=== PATIENT | male | born 1955 | race Caucasian/White ===

== ENCOUNTER 2016-08-01 14:54 | Emergency (ER) | payer MEDICAID, OTHER ==
[2016-08-01 15:10] VITALS: TEMP 98.4; BMI 24.7
[2016-08-01 15:32] LABS: AUTOMATED EOSINOPHIL 0.3 % (0-5); AUTOMATED LYMPH 9.1 % (17-44); AUTOMATED MONOCYTE 4.6 % (3-10)
[2016-08-01 15:49] LABS: BLOOD UREA NITROGEN 18 MG/DL (9-20); CALC CORRECTED 9.6 MG/DL (8.4-10.2); CALCIUM 9.3 MG/DL (8.4-10.2); CALCULATED OSMOLALITY 270 MOs/Kg (270-290); CHLORIDE 104 mEq/L (98-107); GLUCOSE 168 MG/DL (70-99); SODIUM LEVEL 137 mEq/L (137-146); TOTAL PROTEIN 6.8 G/DL (6.3-8.2)
--- NOTE | 2016-08-01 15:55 | DIRPT ---
CLINICAL DATA: Chest pain since 11 a.m. this morning EXAM: CHEST 2 VIEW COMPARISON: None. FINDINGS: Heart size is normal. Overall cardiomediastinal silhouette is normal in size and configuration. Lungs are hyperexpanded indicating underlying COPD. Suspect associated large emphysematous bleb at the right lung base. Also suspect at least mild chronic bronchitic changes centrally. Mild scarring/fibrosis noted at each lung apex. No confluent airspace opacity to suggest a developing pneumonia. No pleural effusions seen. No pneumothorax seen. Osseous structures about the chest are unremarkable. Anterior cervical fusion hardware noted within the lower cervical spine. IMPRESSION: 1. Hyperexpanded lungs consistent with COPD/emphysema. 2. Lungs are clear and there is no evidence of acute cardiopulmonary abnormality. Electronically Signed By: Kenn Renner M.D. On: 08/01/2016 15:52
--- NOTE | 2016-08-01 17:04 | EDPRACDOC ---
- General Information Chief Complaint: Chest Wall Pain Stated Complaint: CP HX SC X 3 Time Seen by Provider: 08/01/16 16:46 Information Source: Patient Home Medications: Home Medications Albuterol Sulfate MDI [Proventil HFA] 2 puff INH Q4 PRN #1 inhaler 08/01/16 Cholecalciferol (Vitamin D3) [Vitamin D3 (cholecalciferol)] 3,000 unit PO DAILY 08/01/16 Esomeprazole Magnesium [Nexium 24Hr] 20 mg PO DAILY 08/01/16 Lisinopril [Zestril] 40 mg PO DAILY 08/01/16 Methotrexate Sodium [Methotrexate] 15 mg PO .WED 08/01/16 Metoprolol Succinate (XL) [Toprol Xl] 25 mg PO DAILY 08/01/16 Prednisone [Deltasone, Orasone] 5 mg PO DAILY 08/01/16 Prednisone [Sterapred DS 10 mg/12 day pack] 48 tab PO DIR #1 pack 08/01/16 Vitamin E 1,000 unit PO DAILY 08/01/16 Allergies/Adverse Reactions: Allergies Allergy/AdvReac Type Severity Reaction Status Date / Time gabapentin Allergy Difficulty Verified 08/01/16 16:13 Breathing - History of Present Illness HPI: PATIENT STATES HE HAS FELT WEAK AND DIZZY FOR 2 DAYS. NO FEVER. NO COUGH. MILD INTERMITTENT CHEST PAIN TODAY. STATES [facility] SUDDEN[facility]. CHEST PAIN WAS SHARP AND ALWAYS ASSOCIATED WITH TRYING TO TAKE A DEEP BREATH Shortness of Breath: Mild Relevant History: Reports: COPD Rhinorrhea: Reports: None Ear Symptoms: Reports: None SOB Worsens with: Reports: Exertion ED Past Medical History - History Reviewed Yes Nurses notes reviewed and agree except as marked Travel Outside of [place] in the Last 3 Months?: No - Patient Medical History Cardiac History: Reports: Hypertension, Heart Attack (x 3), Cardiac Catheterization, Hypercholesterolemia Psychological History: Denies: Depression Systemic History: Denies: Cancer Surgical History: Reports: Cardiac Catheterization - Social Medical History Smoking Status: Heavy tobacco smoker (5 or more cigarettes/day or daily pipe/ cigar) ETOH: None Substance Abuse: None Lives With: Family Lives In: Home EDM Review of Systems - Review of Systems ROS Negative Except as Marked: Yes All systems reviewed and were negative except as marked Constitutional: No Symptoms Reported. negative: Fever, Chills, Weakness, Fatigue, Loss of Appetite Eyes: No Symptoms Reported. negative: Redness, Blurred Vision, Double Vision, Discharge, Pain, Light Sensitive, Photophobia Ears: No Symptoms Reported. negative: Pain, Hearing Loss, Drainage, Ear Pulling Throat: No Symptoms Reported. negative: Pain, Swelling Nose: No Symptoms Reported. negative: Congestion, Bleeding, Discharge, Injection, Swelling, Deformity, Ecchymosis, Tender, Abrasion, Laceration Mouth: No Symptoms Reported. negative: Pain, Drooling Respiratory: Shortness of Breath. negative: Barky Cough, Brassy Cough, Cough, Hemoptysis, Wheezing Cardiovascular: Chest Pain. negative: Cyanosis, Edema, Orthopnea, Palpitations , PND, Syncope, Skin Mottling Gastrointestinal: No Symptoms Reported. negative: Pain, Constipation, Nausea, Vomiting, Diarrhea, Melena, Formula Intolerance Genitourinary: No Symptoms Reported. negative: Dysuria, Hematuria, Frequency, Discharge, Bleeding, Testicular Pain, Neurological: No Symptoms Reported. negative: Headache, Dizziness, Seizure, Numbness, Weakness, Speech Difficulty, Gait Difficulty Musculoskeletal: No Symptoms Reported. negative: Neck, Chestwall, Ribs, Back, Shoulder, Arm, Elbow, Forearm, Wrist, Hand, Pelvis, Hip, Femur, Knee, Leg, Ankle , Foot Integumentary: No Symptoms Reported. negative: Itching, Rash, Bruising, Wound Allergic/Immunologic: No Symptoms Reported. negative: Hives, Itching Hematologic: No Symptoms Reported. negative: Lymphadenopathy, Easy Bruising, Easy Bleeding Endocrine: No Symptoms Reported. negative: Weight Gain, Weight Loss Psychiatric: No Symptoms Reported. negative: Anxiety, Depression, Hallucinations, Insomnia, Suicidal - Physical Exam Constitutional: Alert (Awake) Oriented to: Time, Person, Place Last recorded Vital Signs: Last Vital Signs Temp 98.4 F 08/01/16 15:05 Pulse 59 L 08/01/16 16:45 Resp 18 08/01/16 16:45 BP 175/90 08/01/16 16:45 Pulse Ox 99 08/01/16 16:45 Oxygen Pulse Oxygen Saturation 99 O2 Device Room Air Oxygen Flow Rate Fraction of Inspired Oxygen ( FIO2) - HEENT Head: Normal ( normocephalic) Eye Exam: Normal (PERRL, EOMI, Sclera white) Oropharynx: Normal (Pharynx:Moist without exudate,Gums-no swelling) Tympanic Membrane: Normal ENT EAC: Normal TMJ: Normal Nose: No Symptoms Reported (septum midline) Neck: Normal (FROM, trachea at midline) - Respiratory/Cardiovascular Respiratory: Normal - CTA (BBS clear to auscultation without adventitious sounds ) Cardiovascular: Normal (RRR without murmur, gallop or rub) - GI Auscultation: Normal (NABS) Palpation: Normal (Soft,No rebound or guarding, non distended) Tenderness: Non tender Menjivar's Sign: Negative - Musculoskeletal Back: Normal (Non-Tender) Extremities: Normal (Normal tone, Pulses 2+ No cyanosis or edema, FROM) - Integumentary Skin: Normal, Warm, Dry Lymphatics: Normal (no adenopathy) - Neurologic Memory Impaired: Normal Motor Function: Normal (Normal tone, Pulses 2+ No cyanosis or edema, FROM) Cranial Nerve: Normal (CN II-X11 intact sensation, strength 5/5) Cerebellar: Normal Mood Description: Normal Perception: Normal ED SOB MDM - Results Result Diagrams: 08/01/16 15:03 08/01/16 15:03 Results: WBC 10.0 xk/uL (3.8-10.8) 08/01/16 15:03 RBC 4.89 xM/uL (4.70-6.10) 08/01/16 15:03 Hgb 15.2 g/dL (14.0-18.0) 08/01/16 15:03 Hct 44.8 % (42-52) 08/01/16 15:03 MCV 92 fL (80-94) 08/01/16 15:03 MCH 31.0 pg (27-32) 08/01/16 15:03 MCHC 33.8 g/dl (33-36) 08/01/16 15:03 RDW 14.0 % (11.5-14.5) 08/01/16 15:03 Plt Count 222 xk/uL (130-400) 08/01/16 15:03 MPV 8.0 fL (7.4-10.4) 08/01/16 15:03 Neut % (Auto) 85.0 % (45-76) H 08/01/16 15:03 Lymph % (Auto) 9.1 % (17-44) L 08/01/16 15:03 [place] % (Auto) 4.6 % (3-10) 08/01/16 15:03 Eos % (Auto) 0.3 % (0-5) 08/01/16 15:03 Baso % (Auto) 1.0 % (0-2) 08/01/16 15:03 Absolute Neuts (auto) 8.50 xk/uL (1.7-8.2) H 08/01/16 15:03 Absolute Lymphs (auto) 0.90 xk/uL (0.65-4.75) 08/01/16 15:03 PT 9.9 SEC (9.2-11.2) 08/01/16 15:03 INR 1.0 08/01/16 15:03 APTT 24.0 SEC (22-35) 08/01/16 15:03 Sodium 137 mEq/L (137-146) 08/01/16 15:03 Potassium 4.7 mEq/L (3.5-5.1) 08/01/16 15:03 Chloride 104 mEq/L (98-107) 08/01/16 15:03 Carbon Dioxide 23 mMOL/L (22-33) 08/01/16 15:03 Anion Gap 15 mEq/L (8-16) 08/01/16 15:03 BUN 18 MG/DL (9-20) 08/01/16 15:03 Creatinine 1.00 MG/DL (0.66-1.25) 08/01/16 15:03 Estimated GFR (MDRD) > 60 mL/min (>=60) 08/01/16 15:03 Glucose 168 MG/DL (70-99) H 08/01/16 15:03 Calculated Osmolality 270 MOs/Kg (270-290) 08/01/16 15:03 Calcium 9.3 MG/DL (8.4-10.2) 08/01/16 15:03 Corrected Calcium 9.6 MG/DL (8.4-10.2) 08/01/16 15:03 Total Bilirubin 0.3 MG/DL (0.2-1.3) 08/01/16 15:03 AST 17 IU/L (17-59) 08/01/16 15:03 ALT 23 IU/L (21-72) 08/01/16 15:03 Alkaline Phosphatase 91 IU/L (50-160) 08/01/16 15:03 Troponin I < 0.01 ng/mL (<.04) 08/01/16 15:03 Thd-O-Lvvoqcqxxjb Pept 98 pg/mL (0-900) 08/01/16 15:03 Total Protein 6.8 G/DL (6.3-8.2) 08/01/16 15:03 Albumin 3.7 G/DL (3.5-5.0) 08/01/16 15:03 Lab Results 08/01/16 08/01/16 08/01/16 15:03 15:03 15:03 WBC 10.0 RBC 4.89 Hgb 15.2 Hct 44.8 MCV 92 MCH 31.0 MCHC 33.8 RDW 14.0 Plt Count 222 MPV 8.0 Neut % (Auto) 85.0 H Lymph % (Auto) 9.1 L [place] % (Auto) 4.6 Eos % (Auto) 0.3 Baso % (Auto) 1.0 Absolute Neuts (auto) 8.50 H Absolute Lymphs (auto) 0.90 PT 9.9 INR 1.0 APTT 24.0 Sodium 137 Potassium 4.7 Chloride 104 Carbon Dioxide 23 Anion Gap 15 BUN 18 Creatinine 1.00 Estimated GFR (MDRD) > 60 Glucose 168 H Calculated Osmolality 270 Calcium 9.3 Corrected Calcium 9.6 Total Bilirubin 0.3 AST 17 ALT 23 Alkaline Phosphatase 91 Troponin I < 0.01 Uee-B-Lqngvxpzhmo Pept 98 Total Protein 6.8 Albumin 3.7 Decision Time to Discharge: 17:23 - Departure Yes I personally saw and evaluated the patient. Disposition: Home Condition: Good Final Diagnosis: COPD exacerbation Instructions: COPD (Chronic Obstructive Pulmonary Disease) (ED) Education/Counseling Given To: Patient Education/Counseling Given Regarding: Diagnosis, Treatment, Prognosis, Follow Up Referrals: None,No Provider [NonStaff] - One Week Dipak Maloney MD [Staff Physician] - One Week Prescriptions: Albuterol Sulfate MDI [Proventil HFA] 2 puff INH Q4 PRN #1 inhaler PRN Reason: Dyspnea Prednisone [Sterapred DS 10 mg/12 day pack] 48 tab PO DIR #1 pack
[2016-08-01] MEDS ORDERED: ASPIRIN (CHEWABLE) 81 MG TAB PO ONE (17:05)
[2016-08-01] MEDS ORDERED: Albuterol/Ipratropium Neb 3 ML NEB NEB ONE (17:05)
[2016-08-01] MEDS: NITROGLYCERINE 2 % OINTMENT PACK TOP ONE ×2 (17:20→17:27)
[2016-08-01] MEDS ORDERED: Pharmacy Review for Metformin - IV Contrast Given SCH (19:00)
--- NOTE | 2016-08-01 19:57 | DIRPT ---
CLINICAL DATA: Shortness of breath. EXAM: CT ANGIOGRAPHY CHEST WITH CONTRAST TECHNIQUE: Multidetector CT imaging of the chest was performed using the standard protocol during bolus administration of intravenous contrast. Multiplanar CT image reconstructions and MIPs were obtained to evaluate the vascular anatomy. CONTRAST: 100 cc IV Isovue 370 intravenously. COMPARISON: Chest radiograph from the same date. FINDINGS: Mediastinum/Lymph Nodes: No pulmonary emboli or thoracic aortic dissection identified. Mild calcified and noncalcified atherosclerotic plaque of the thoracic aorta is seen. No masses or pathologically enlarged lymph nodes identified. There is a mildly prominent right hilar lymph node. Lungs/Pleura: The lungs are hyperinflated. There is a upper lobe predominant predominantly centrilobular emphysema. There is a 4 mm perifissural soft tissue nodule in the right middle lobe, image 77 sequence 4 and image 88 sequence 602. Upper abdomen: No acute findings. Musculoskeletal: No chest wall mass or suspicious bone lesions identified. Review of the MIP images confirms the above findings. IMPRESSION: No evidence of pulmonary embolus. Atherosclerotic disease of the aorta. Emphysema. 4 mm subpleural right middle lobe soft tissue nodule. If the patient is at high risk for bronchogenic carcinoma, follow-up chest CT at 1 year is recommended. If the patient is at low risk, no follow-up is needed. This recommendation follows the consensus statement: Guidelines for Management of Small Pulmonary Nodules Detected on CT Scans: A Statement from the Fleischner Society as published in Radiology 2005; 237:395-400. Electronically Signed By: Toribio Anaya M.D. On: 08/01/2016 19:55
[2016-08-01 20:32] VITALS: BP 179/87; PULSE 84
== END 2016-08-01 20:37 | disposition home or self-care (01) ==
LOC: ED 14:54
DX: J44.1 Chronic obstructive pulmonary disease with (acute) exacerbation (principal)
CPT/HCPCS: 36415; 71020; 71275; 80053; 83880; 84484; 85025; 85379; 85610; 85730; 93005; 94640; 99284; A9698; J3490; J7620